=== PATIENT | female | born 1950 | race Caucasian/White ===

== ENCOUNTER 2020-11-10 06:25 | Day surgery (SDC) | payer MEDICARE, OTHER ==
[~2020-11-10] VITALS: Ht 170.2 cm; Wt 90.9 kg
[~2020-11-10 06:25] MED LIST: AMBIEN10 MG PO; AMLODIPINE BESY10 MG PO; CALCIUM500 MG PO; DAILY MULTIPLE1 EACH PO; DIOVAN320 MG PO; DORZOLAMIDE-TIM10 ML; GABAPENTIN400 MG PO; KRILL OIL 1,001 EAC1 PO; L-METHYLFOLATE15 M1 PO; LATANOPROST 0.7.5 ML OP; LUTEIN20 MG PO; LYRICA50 MG PO; MAGNESIUM100 MG PO; TIROSINT25 MCG PO; TURMERIC500 M2 PO; VITAMIN B-125000 MC1 PO; VITAMIN C1000 MG PO; VITAMIN D5000 UNI1 PO
--- NOTE | 2020-11-10 07:55 | NUR ---
11/10/20 0755 Nahed Person 0750-PATIENT ARRIVED TO PACU ON 10 L MASK NONAROUSABLE ORAL AIRWAY IN PLACE. RR EVEN. PATIENT PLACED ON 6L MASK. LAYING LEFT LATERAL. ABDOMEN SOFT. IVF INFUSING. SR.
--- NOTE | 2020-11-10 08:49 | NUR ---
PT IS ALERT, ORIENTED AND HAS HAD PREVIOUS SCOPES. PT DESIRES TO BE PROACTIVE IN HER HEALTH AFTER JUST BATTLING CANCER. PT FEELS PREPARED, ALL QUESTIONS ASKED ANSWERED. PT DECLINED PRAYER, TO PICKUP FOLLOWING DC.
--- NOTE | 2020-11-10 09:37 | OR ---
[facility] [address], [place] [address] Signed DATE OF OPERATION: 11/10/2020 SURGEON: Ana Omer MD PREOPERATIVE DIAGNOSES: 1. Personal history of colonic polyps in [address] Lucas Rodriguez. 2. Personal history of colonic polyps in [address] Ana Omer. 3. Minimal sigmoid diverticulosis. 4. Possible irritable bowel syndrome with diarrhea. 5. Father with colonic polyps in his 70s. POSTOPERATIVE DIAGNOSES: 1. 4 mm polyps x2, proximal right colon. 2. Minimal sigmoid diverticulosis. 3. Minimal to moderate internal hemorrhoids. PROCEDURE: Colonoscopy with hot biopsy. ESTIMATED BLOOD LOSS: None. INDICATIONS: Tami is a 70-year-old female, who presents as above. She comes every 5 years for a repeat colonoscopy. She said she woke up during her colonoscopy back in 2012 and it was quite miserable. We used monitored anesthesia care due to her significant past medical history in 2016 and it worked out much better. There was some concern that she has a lipoma on the ileocecal valve per Dr. Rodriguez. However, I have not seen that previously nor did I see it today. She had diarrhea for about three years, so there was some concern about irritable bowel syndrome. When she cut the carbohydrates out in the ice cream, it really helped. In addition, she does have significant past medical history including her sleep apnea, her obesity, chronic pain syndrome, and frequent alcohol and marijuana use. I think that is also part of the reason she is needed propofol infusion with monitored anesthesia care. In the office, I had given her a pamphlet on colonoscopy. I reminded her the nature of that test. There is risk including, but not limited to gas bloating, crampy abdominal pain, bleeding, perforation requiring surgery, and missed diagnosis. Again, she recalls the IV sedation versus the monitored anesthesia care. She had expressed understanding and wished to proceed. PROCEDURE NOTE: Electronically Signed By: ANA OMER MD 11/10/20 0937 PATIENT NAME: TAMI PASTOR OPERATIVE REPORT DATE OF : 50 REPORT #: [id number] PHYSICIAN: ANA OMER MD PCP: ASHLY RODRIGUEZ REPORT IS CONFIDENTIAL AND NOT TO BE RELEASED WITHOUT AUTHORIZATION [facility] [address], [place] [address] Signed Tami was taken into our endoscopy suite and placed in the left lateral decubitus position. She was given IV sedation with propofol per our nurse continuous improvement manager. A digital rectal exam was performed and this was unremarkable. The adult colonoscope was introduced and advanced all around into the cecum under direct visualization of camera without difficulty. Her prep was good. We could easily see the appendiceal orifice and ileocecal valve. The scope was then slowly withdrawn. She had two small polyps removed out of the proximal right colon with the help of a hot biopsy forceps. Once again, she has a few diverticula in the sigmoid colon. They were moderate in size, few in number, and scattered about. The rectum was unremarkable. Upon retroflexion of the scope, she does have minimal to moderate internal hemorrhoid columns. After this, the gas was suctioned out and colonoscope removed. Tami tolerated the procedure quite well with the help of the propofol. RECOMMENDATIONS: I will see Tami back in my office in 7 to 14 days to review her results. She will likely stay on the 5-year rotation. Ana Omer MD ALB/MODL /[id number] cc: MD Ana Navarrete, AMNA [employer] Copies: IBAN SHELDON MD, ANDREW L MD MCELLIGOTT, EILEEN FNP ~ Electronically Signed By: ANA OMER MD 11/10/20 0937 PATIENT NAME: TAMI PASTOR OPERATIVE REPORT DATE OF : 50 REPORT #: [id number] PHYSICIAN: ANA OMER MD PCP: ASHLY RODRIGUEZ REPORT IS CONFIDENTIAL AND NOT TO BE RELEASED WITHOUT AUTHORIZATION
== END 2020-11-10 08:30 | disposition home or self-care (01) ==
LOC: DS 06:25 → OPS 06:25 → DS 06:45 → OPS 08:30
PROVIDERS: ATTEND Colon & Rectal Surgery
PROC: 0DBK8ZX Excision of Ascending Colon, Via Natural or Artificial Opening Endoscopic, Diagnostic (ICD-10-PCS; principal; 2020-11-10 06:45)
DX: K57.30 Diverticulosis of large intestine without perforation or abscess without bleeding (principal); D12.2 Benign neoplasm of ascending colon; K64.8 Other hemorrhoids; I10 Essential (primary) hypertension; E03.9 Hypothyroidism, unspecified; G47.30 Sleep apnea, unspecified; E66.9 Obesity, unspecified; Z68.31 Body mass index [BMI] 31.0-31.9, adult; Z86.010 Personal history of colon polyps; Z83.71 Family history of colonic polyps; Z80.0 Family history of malignant neoplasm of digestive organs; Z88.8 Allergy status to other drugs, medicaments and biological substances
CPT/HCPCS: 80053; 88305; J2704; J7121

== ENCOUNTER 2024-04-28 17:44 | Emergency (ER) | payer OTHER, MEDICARE ==
[~2024-04-28 17:44] MED LIST changes: +BRIMONIDINE TART5 ML OPTH; +BUPROPION HCL100 M1 PO; +HYDROCHLOROTHIA25 MG PO; +PREVACID 24HR15 MG PO; +VALIUM5 MG PO
[2024-04-28 17:58] LABS: BASOPHILS 0.6 % (0-2); EOSINOPHILS 1.4 % (0-6); HEMATOCRIT 42.7 % (35.0-50.0); HEMOGLOBIN 15.4 g/dL (12.0-18.0); LYMPHOCYTES 26.4 % (24-44); MCH 34.9 (27-36); MCHC 36.1 g/dl (30-36); MCV 96.7 fl (81-99); MONOCYTES 9.8 % (0-12); NEUTROPHILS 61.8 % (39-80); PLATELET COUNT 254 K/uL (140-440); RBC 4.42 M/ul (4.3-5.7); RDW 13.2 (10.5-15.0)
[2024-04-28] MEDS ORDERED: LIDOCAINE/RACEPINEP/TETRACAINE 3 ML SYR TOP ONE ×2 (18:00→19:15)
[2024-04-28 18:15] LABS: ALBUMIN 3.8 g/dL (3.4-5.0); ALBUMIN/GLOBULIN RATIO 1.19 (1.1-2.4); ALCOHOL, MEDICAL <3 ng/dL (<3); ALKALINE PHOSPHATASE 70 U/L (46-116); ALT (SGPT) 30 U/L (14-59); AST (SGOT) 17 U/L (15-37); BILIRUBIN, TOTAL 1.8 ng/dL (0.2-1.0); BUN/CREATININE RATIO 16.66 (6.0-28.6); CALCIUM 9.4 mg/dL (8.5-10.1); CARBON DIOXIDE 32 mmol/L (21-32); CHLORIDE 103 mmol/L (98-107); CREATININE, SERUM 0.66 mg/dL (0.55-1.02); GLOMERULAR FILTRATION RATE,EST 93 mL/min (>60); UREA NITROGEN 11 mg/dL (7-18)
[2024-04-28 18:29] LABS: ABO A; ANTIBODY SCREEN NEGATIVE; RH NEGATIVE
[2024-04-28] MEDS ORDERED: OXYBUTYNIN CHLO10 MG PO (19:06)
[2024-04-28] MEDS ORDERED: RILUTEK50 MG PO (19:06)
[2024-04-28] MEDS ORDERED: DIPHTH,PERTUSS(ACELL),TET VAC 0.5 ML SYRINGE IM ONE (19:15)
[2024-04-28 20:04] VITALS: BP 129/74
== END 2024-04-28 20:04 | disposition home or self-care (01) ==
LOC: ED 17:44
PROVIDERS: Emergency Medicine
DX: S01.01XA Laceration without foreign body of scalp, initial encounter (principal); I10 Essential (primary) hypertension; Z88.0 Allergy status to penicillin; Z79.890 Hormone replacement therapy; Z79.899 Other long term (current) drug therapy; W05.0XXA Fall from non-moving wheelchair, initial encounter
CPT/HCPCS: 12002; 36415; 51798; 70450; 70486; 72125; 73090; 80053; 85025; 86850; 86900; 86901; 90471; 90715; 99284-25; G0480

== ENCOUNTER 2024-06-11 03:04 | Emergency (ER) | payer MEDICARE, OTHER ==
[~2024-06-11] VITALS: Ht 170.2 cm; Wt 77.8 kg
[~2024-06-11 03:04] MED LIST changes: +OXYBUTYNIN CHLO10 MG PO; +RILUTEK50 MG PO
[2024-06-11] MEDS ORDERED: TRAMADOL HCL50 MG PO (05:22)
[2024-06-11] MEDS ORDERED: TRAMADOL HCL 50 MG HOME.PACK PO ONE (05:30)
[2024-06-11 05:40] VITALS: BP 142/65
== END 2024-06-11 05:40 | disposition home or self-care (01) ==
LOC: ED 03:04
DX: S16.1XXA Strain of muscle, fascia and tendon at neck level, initial encounter (principal); S29.012A Strain of muscle and tendon of back wall of thorax, initial encounter; S01.01XA Laceration without foreign body of scalp, initial encounter; I10 Essential (primary) hypertension; Z88.0 Allergy status to penicillin; Z79.890 Hormone replacement therapy; Z79.899 Other long term (current) drug therapy; W18.30XA Fall on same level, unspecified, initial encounter
CPT/HCPCS: 12002; 51702; 70450; 72125; 72128; 99283-25; A9270